=== PATIENT | male | born 1990 | race Caucasian/White ===

== ENCOUNTER 2016-08-26 21:48 | Emergency (ER) | payer SELFPAY ==
[2016-08-26 22:10] VITALS: BP 100/44
--- NOTE | 2016-08-26 22:29 | ED Physician Documentation ---
Upper Extremity Injury - HISTORIAN Historian: patient - HPI Stated Complaint: right arm pain Chief Complaint: Upper Back Injury/ Pain Onset: today (2-3 hours ago) Severity: moderate Context: fall Further Comments: yes (26 year old male patient presents with right forearm pain after falling 2-3 hours ago. States pain is worse with pronation and supination.) - ROS CONST: no problems CVS/RESP: none NEURO: none MS/SKIN/LYMPH: none GI/: denies: nausea, vomiting - PAST HX Past History: Rt handed Allergies/Adverse Reactions: Allergies Allergy/AdvReac Type Severity Reaction Status Date / Time No Known Allergies Allergy Verified 08/26/16 22:03 Home Medications: Ambulatory Orders Medication Instructions Recorded NK [NK] 10/01/15 - SOCIAL HX Smoking History: cigarettes - FAMILY HX Family History: none - VITAL SIGNS Vital Signs: Vital Signs Temp Pulse Resp BP Pulse Ox 97.9 F 70 20 100/44 98 08/26/16 22:50 08/26/16 22:50 08/26/16 22:50 08/26/16 22:50 08/26/16 22:50 - REVIEWED ASSESSMENTS Nursing Assessment Reviewed: Yes Vitals Reviewed: Yes Progress - Progress Progress: Reviewed xray findings with patient. Will place in immobilizer; instructed patient to follow up with orthopedics, referral page provided. ED Results Lab/Radiology - Radiology Radiology Impressions: Right forearm, 2 views. History: FALL, PAIN AROUND ELBOW AND WRIST Findings: There is an intra-articular nondisplaced fracture of the radial head noted with intra-articular extension. The remaining osseous structures are normal. The wrist joint is normal. Impression: 1. Intra-articular nondisplaced radial head fracture. Electronically signed on August 26, 2016 10:31:32 PM CDT by: Juan Jose Marin - Orders Orders: ED Orders Category Date Time Status FOREARM 2 VIEWS [RAD] Stat Exams 08/26/16 Completed HYDROcodone /APAP 5/325 [[place] 5/325] Med 08/26/16 22:40 Discontinued 2 each PO NOW ONE Upper Extremity Injury Physic - Physical Exam General Appearance: mild distress Hand: normal inspection, non-tender, no evidence of injury, normal ROM Wrist: normal inspection, non-tender, no evidence of injury, normal ROM Elbow/Forearm: normal inspection, no evidence of injury, limited ROM (extension and flexion), pain, soft tissue tenderness Shoulder: normal inspection, non-tender, no evidence of injury, normal ROM Neuro/Vascular/Tendon: no vascular compromise, motor nml, sensation nml, ROM nml Skin: warm,dry Resp/CVS: chest non-tender Discharge Clincal Impression: Contusion of right forearm Qualifiers: Encounter type: initial encounter Qualified Code(s): S50.11XA - Contusion of right forearm, initial encounter Radial head fracture, closed Qualifiers: Encounter type: initial encounter Fracture alignment: nondisplaced Laterality: right Qualified Code(s): S52.124A - Nondisplaced fracture of head of right radius, initial encounter for closed fracture Referrals: Primary Doctor,No [Primary Care Provider] - 2 Days Additional Instructions: Rest Ice Wear the immobilizer at all times. You may remove it to shower. Follow up with orthopedics tomorrow. Call and make an appointment. Take your disc and report with you to the appointment. Home Medications: Ambulatory Orders NK [NK] 10/01/15 Condition: Stable Disposition: 01 HOME, SELF-CARE Decision to Admit: NO Decision Time: 22:45
[2016-08-26] MEDS ORDERED: HYDROcodone /APAP 5/325 1 EACH TABLET PO ONE (22:40)
--- NOTE | 2016-08-27 06:49 | Diagnostic Imaging Report ---
ALFREDA STOVER (DONNA) - ER [facility] [address] [facility].[address] [address] Report Submission Date: August 26, 2016 10:31:32 PM CDT Patient Study Name: NOE AGUIRRE Date: August 26, 2016 10:09:44 PM CDT Modality Type: CR Gender: M Description: UPPER EXTREMITY : 88 Institution: [facility] Physician: ALFREDA STOVER) - ER Right forearm, 2 views. History: FALL, PAIN AROUND ELBOW AND WRIST Findings: There is an intra-articular nondisplaced fracture of the radial head noted with intra-articular extension. The remaining osseous structures are normal. The wrist joint is normal. Impression: 1. Intra-articular nondisplaced radial head fracture. Electronically signed on August 26, 2016 10:31:32 PM CDT by: Juan Jose ROSARIO
== END 2016-08-26 22:50 | disposition home or self-care (01) ==
LOC: ED 21:48
DX: S52.124A Nondisplaced fracture of head of right radius, initial encounter for closed fracture (principal); W19.XXXA Unspecified fall, initial encounter; Y93.9 Activity, unspecified; Y99.9 Unspecified external cause status
CPT/HCPCS: 73090; A9270; 99283

== ENCOUNTER 2016-11-20 22:08 | Emergency (ER) | payer SELFPAY ==
[2016-11-20] MEDS ORDERED: ORPHENADRINE CITRATE 60 MG/2ML ONE (22:29)
[2016-11-20] MEDS ORDERED: traMADol HCL 50 MG TABLET ONE (22:30)
[2016-11-20] MEDS: ORPHENADRINE CITRATE 60 MG/2ML IM ONE (22:32)
[2016-11-20] MEDS: traMADol HCL 50 MG TABLET PO ONE (22:33)
--- NOTE | 2016-11-20 22:39 | ED Physician Documentation ---
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 denies: recent illness CVS/RESP: none EYES/ENT: none MS/SKIN/LYMPH: none Neuro/Psych: none - PAST HX Past History: other (none) Surgeries/Procedures: none Allergies/Adverse Reactions: Allergies Allergy/AdvReac Type Severity Reaction Status Date / Time No Known Allergies Allergy Verified 11/20/16 22:37 Home Medications: Ambulatory Orders Medication Instructions Recorded NK [NK] 10/01/15 - SOCIAL HX Smoking History: less than 1 pack/day Alcohol Use: none Drug Use: none - FAMILY HX Family History: no significant history - VITAL SIGNS Vital Signs: Vital Signs Temp Pulse Resp BP Pulse Ox 100/44 08/26/16 22:50 - REVIEWED ASSESSMENTS Nursing Assessment Reviewed: Yes Vitals Reviewed: Yes ED Results Lab/Radiology - Orders Orders: ED Orders Category Date Time Status Orphenadrine Citrate [Norflex] Med 11/20/16 22:29 Discontinued 60 mg .ROUTE .STK-MED ONE Orphenadrine Citrate [Norflex] Med 11/20/16 22:28 Discontinued 60 mg IM NOW ONE traMADol HCL [Ultram] Med 11/20/16 22:30 Discontinued 50 mg .ROUTE .STK-MED ONE traMADol HCL [Ultram] Med 11/20/16 22:28 Discontinued 50 mg PO NOW ONE Low Back Pain/Injury - Physical Exam General Appearance: mild distress EENT: eye inspection normal Neck: non-tender, painless ROM Resp/CVS: chest non-tender, breath sounds nml, heart sounds nml Abdomen: non-tender Back: vertebral point-tendernes (t12 through l3-4), muscle spasm (yelena lt min palp tenderness paravert-more supra spinal) Neuro/Psych: oriented x3, motor nml, sensation nml, mood/affect nml, difficulty walking (per hx) Skin: warm/dry. No: normal color, cyanosis, diaphoresis, jaundice Extremities: non-tender, normal range of motion, no evidence of injury Discharge Clincal Impression: low back pain Referrals: Primary Doctor,No [Primary Care Provider] - 2 Days Home Medications: Ambulatory Orders NK [NK] 10/01/15 Condition: Good Disposition: 01 HOME, SELF-CARE Decision to Admit: NO Decision Time: 22:46
[2016-11-20 23:02] VITALS: BP 105/63
== END 2016-11-20 22:54 | disposition home or self-care (01) ==
LOC: ED 22:08
DX: M54.5 Low back pain (principal)
CPT/HCPCS: J2360 ×2; 96372; 99283

== ENCOUNTER 2017-08-23 19:26 | Emergency (ER) | payer SELFPAY ==
[2017-08-23 19:42] VITALS: BP 130/73
--- NOTE | 2017-08-23 20:15 | Diagnostic Imaging Report ---
JB BURGOS [facility] [address] [facility] [address] [address] Report Submission Date: August 23, 2017 8:09:51 PM CDT Patient Study Name: NOE AGUIRRE Date: August 23, 2017 7:46:24 PM CDT Modality Type: DX Gender: M Description: LOWER EXTREMITY : 88 Institution: [facility] Physician: JB BURGOS Right ankle 3 views Clinical history: Pain and swelling after injury There is soft tissue swelling of the outer aspect of the right ankle with marginal spurs at the tip of the medial malleolus. No visible fractures, dislocation or significant joint effusion. Impression: Soft tissue swelling and spurs without fractures Electronically signed on August 23, 2017 8:09:51 PM CDT by: Jb ROSARIO
--- NOTE | 2017-08-23 20:15 | ED Physician Documentation ---
General Adult - HISTORIAN Historian: patient - HPI Stated Complaint: rt ankle injury Chief Complaint: General Adult Onset: days ago (3) Timing: still present Severity: moderate Further Comments: yes (Pt is a 27 yo male with ankle pain. Pt rolled his ankle 3 days ago, stepping in a hole. Ankle later became swollen and painful.) - ROS CONST: no problems EYES/ENT: none CVS/RESP: none GI/: none MS/SKIN/LYMPH: other (R ankle pain) - PAST HX Past History: none Surgeries/Procedures: none Allergies/Adverse Reactions: Allergies Allergy/AdvReac Type Severity Reaction Status Date / Time No Known Allergies Allergy Verified 08/23/17 20:27 Home Medications: Ambulatory Orders Medication Instructions Recorded NK [NK] 10/01/15 - SOCIAL HX Smoking History: non-smoker - FAMILY HX Family History: No - VITAL SIGNS Vital Signs: Vital Signs Temp Pulse Resp BP Pulse Ox 98.7 F 99 H 16 130/73 97 08/23/17 19:27 08/23/17 19:27 08/23/17 19:27 08/23/17 19:27 08/23/17 19:27 - REVIEWED ASSESSMENTS Nursing Assessment Reviewed: Yes Vitals Reviewed: Yes Progress - Progress Progress: X-ray R ankle: Soft tissue swelling and spurs without fractures. Toradol 60 mg IM Air splint Crutches prn ED Results Lab/Radiology - Orders Orders: ED Orders Category Date Time Status RIGHT ANKLE [ANKLE 3 VIEWS OR MORE] [RAD] Stat Exams 08/23/17 Taken General Adult Physical Exam - PHYSICAL EXAM GENERAL APPEARANCE: mild distress NECK: normal inspection, supple RESPIRATORY: no resp distress, chest non-tender CVS: reg rate & rhythm, heart sounds normal BACK: normal inspection SKIN: warm/dry, normal color EXTREMITIES: other (medial ankle tenderness; min swelling) NEURO: oriented X3, motor nml, sensation nml Discharge Clincal Impression: Right ankle sprain Qualifiers: Encounter type: initial encounter Involved ligament of ankle: unspecified ligament Qualified Code(s): S93.401A - Sprain of unspecified ligament of right ankle, initial encounter Referrals: Primary Doctor,No [Primary Care Provider] - Condition: Good Disposition: 01 HOME, SELF-CARE Decision to Admit: NO Decision Time: 20:15
[2017-08-23] MEDS: KETOROLAC TROMETHAMINE 60 MG/2 ML VIAL IM ONE (20:20)
== END 2017-08-23 20:32 | disposition home or self-care (01) ==
LOC: ED 19:26
DX: S93.401A Sprain of unspecified ligament of right ankle, initial encounter (principal); Y93.01 Activity, walking, marching and hiking
CPT/HCPCS: 73610; J1885; L4350; 96372; 99284

== ENCOUNTER → 2018-05-04 | Emergency (ER) | payer SELFPAY | LOC: ED 15:25 | DX: B34.9 Viral infection, unspecified (principal); Z72.0 Tobacco use | CPT/HCPCS: 99281 ==